=== PATIENT | male | born 1950 | race Caucasian/White ===

== ENCOUNTER 2022-11-27 22:22 | Emergency (ER) | payer MEDICARE, SELFPAY ==
[~2022-11-27 22:22] MED LIST: EPINEPHrine 1 MG/10 ML Abboject SYRINGE ONE
== END 2022-11-27 22:23 | disposition expired ==
LOC: MADERS 22:22
DX: I46.9 Cardiac arrest, cause unspecified (principal)
CPT/HCPCS: 31500; 92950; J0171